=== PATIENT | female | born 1940 | race Caucasian/White ===

== ENCOUNTER 2016-12-03 22:50 | Inpatient (IN) | payer MEDICARE, OTHER ==
[~2016-12-03] VITALS: Ht 157.5 cm; Wt 77.5 kg
[~2016-12-03 22:50] MED LIST: ASPI-973 PO; CARV25TA2 PO; CLOP75TA3 PO; GLPZ5T PO; HYDR-4003 PO; LETR2.5T4 PO; LEVO88TA28 PO; LISI10TA PO; NITR0.4T SL; PROM25TA14 PO; ROPI1TAB3 PO; ROSU40TA20 PO
[2016-12-03 23:07] VITALS: BP 141/104; PULSE 145; RESP 20; RESP 29; O2SAT 94; O2SAT 98
--- NOTE | 2016-12-03 23:09 | ED.REPORT ---
HPI-Chest Pain 40 and Over Date of Service Dec 03, 2016 ED Provider: Danica Whittaker MD The pt is a 76 y/o female w/ a hx of 2 myocardial infarctions, a triple bypass, HTN, and hyperlipidemia presenting to the ED via EMS due to chest pain onset 2129. She describes the pain as substernal, radiating to the left arm, heavy, and a 5-6/10 pain. She took two aspirins and 3 nitroglycerin tablets w/o any relief. She also has been experiencing nausea for the last week. She took her daily aspirin at roughly 0900 this morning. EMS reports her HR being 150 when they arrived, and eventually decreasing to 110 , and a systolic high of 103 and a low of 75. The pt reports her systolic BP being 213 four days ago. The pt was prescribed two new blood pressure medications earlier this week but is unsure of the names. She was also hospitalized 2 years ago for a STEMI. Nursing Notes Stated Complaint: CHEST PAIN Chief Complaint: Chest Pain Nursing Notes Reviewed: Yes Allergies: Coded Allergies: codeine (Verified Allergy, Intermediate, 12/28/11) Scheduled Aspirin (Aspirin) 81 Mg Tablet 81 MG PO DAILY Carvedilol (Carvedilol) 25 Mg Tablet 12.5 MG PO BID Clopidogrel Bisulfate (Plavix) 75 Mg Tablet 75 MG PO DAILY Glipizide (Glipizide) 5 Mg Tablet 2.5 MG PO MORNING HOLD Letrozole (Letrozole) 2.5 Mg Tablet 2.5 MG PO DAILY Levothyroxine (Levoxyl) 88 Mcg Tablet 88 MCG PO DAILY Lisinopril (Lisinopril) 10 Mg Tablet 10 MG PO DAILY Ropinirole (Ropinirole) 1 Mg Tablet 1.5 TAB PO HS Rosuvastatin Calcium (Rosuvastatin Calcium) 40 Mg Tablet 40 MG PO HS Scheduled PRN Hydrocodone-Acetaminophen 5-325 mg (Hydrocodone-Acetaminophen 5-325 mg) 1 Each Tablet 1 TABLET PO Q6H PRN PRN For Pain Nitroglycerin SL (Nitrostat) 0.4 Mg Tab.subl 0.4 MG SL DIRECTED PRN PRN chest pain Promethazine (Promethazine) 25 Mg Tablet 25 MG PO q4-6h PRN PRN For Nausea/ Vomiting General Time Seen by MD: 23:08 Chief Complaint Chest pain Hx Obtained From: Patient, EMS Arrived By: Ambulance Sudden in Onset?: Yes Onset Occurred: 1 - 4 hours ago Symptom Duration: Since onset Recent Healthcare: No recent hospitalization, Recent doctor visit Similar Sx Previous: Yes Past Medical History Past Medical History 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 Physical Exam Initial Vital Signs Vital Signs (First) Date Time Temp Pulse Resp B/P Pulse Ox O2 Delivery O2 Flow Rate FiO2 12/03/16 23:07 37.2 145 29 141/104 94 12/03/16 23:48 Room Air 12/04/16 00:32 2 Initial VS: Reviewed, Vital signs normal Head / Eyes: Atraumatic, Normocephalic, PERRL ENT: Mucous membranes moist, Conjunctiva normal, No scleral icterus Extremities: Vascular intact, Neuro intact, No swelling, No tenderness Skin: Warm, Dry, No cyanosis Neurologic: Alert, Oriented, Nonfocal Psychiatric: Mood/affect normal, Behavior normal, Normal thought content General/Constitutional: Awake, Alert, No acute distress Respiratory / Chest: Atraumatic, Breath sounds NL, Breath sounds = bilat Cardiovascular: Heart sounds NL, Peripheral circulation NL Rapid regular rhythm at 145 Abdomen: Atraumatic, Soft, Non-tender Neck: Atraumatic, Supple, Full range of motion, No JVD Interpretation & Diagnostics Lab Results Interpretation Result Diagram: 12/03/16 2316 12/03/16 2316 Test 12/03/16 23:16 White Blood Count 11.1th/mm3 (3.8-10.1) Red Blood Count 5.21mil/mm3 (3.90-5.20) Hemoglobin 16.1g/dL (12.0-15.6) Hematocrit 50.2% (35.0-46.0) Mean Corpuscular Volume 96.4fL (81-100) Mean Corpuscular Hemoglobin 30.9pg (27.0-35.0) Mean Corpuscular Hemoglobin Concent 32.1% (32.0-37.0) Red Cell Distribution Width 15.2% (12.3-15.4) Platelet Count 170bil/L (150-400) Neutrophils (%) (Auto) 59.6% (40-74) Lymphocytes (%) (Auto) 26.1% (14-46) Monocytes (%) (Auto) 11.7% (4-12) Eosinophils (%) (Auto) 1.8% (0-5) Basophils (%) (Auto) 0.5% (0-3) Sodium Level 142mEq/L (134-144) Potassium Level 4.6mEq/L (3.5-5.2) Chloride Level 107mEq/L (97-108) Carbon Dioxide Level 23mmol/L (18-29) Blood Urea Nitrogen 32mg/dL (8-27) Creatinine 1.35mg/dL (0.57-1.00) Estimat Glomerular Filtration Rate 55mL/min (>59) Glucose Level 106mg/dL (60-99) Calcium Level 9.2mg/dL (8.5-10.1) Magnesium Level 2.4mg/dL (1.6-2.6) Total Bilirubin 0.4mg/dL (0.0-1.2) Aspartate Amino Transf (AST/SGOT) 31U/L (0-50) Alanine Aminotransferase (ALT/SGPT) 17U/L (0-32) Alkaline Phosphatase 134U/L (25-165) Troponin T 0.010ug/L (0.0-0.011) Total Protein 6.9g/dL (6.4-8.4) Albumin 3.6g/dL (3.4-5.0) Lab Results Interpretation: Mild elevation in white blood count, mild renal insufficiency ECG Interpretation ECG Interpretation: Rate 142 Sinus tachycardia Multiple ventricular premature complexes RBBB LVH w/ IVCD and secondary repol abnormal Inferior infarct, acute (RCA) Lateral leads are also involved Prolonged QT interval Probable RB involvement, suggest recording right precordial leads No acute ND Time: 23:11 Interpreted by: ED physician Normal ECG Interpretation: Normal rate ECG Interpretation: Rate 76 NSR RBBB Inferior infarct, age indeterminate Time: 00:03 Interpreted by: ED physician X-Ray Chest Interpretation Chest Xray Interpretation: Impression: X-ray shows a L mastectomy but otherwise is normal View: Portable, 1 view Interpretation / Wet Read by: Wet read ED physician Re-Eval/Medical Decision Med Decision/Clinical Course 76-year-old female who presents with chest pain and rapid heart rate. She is in a wide complex tachycardia with repolarization abnormality, cannot rule out sustained perfusing ventricular tachycardia. She was given metoprolol IV and converted to a normal sinus rhythm. Her chest pain resolved. Troponin is not elevated. Her case was discussed with Dr. Hall who recommended metoprolol tartrate 50 mg by mouth every 6 hours and admission. She was admitted to the hospitalist service, [facility]. Source of Hx: Old records Time of Eval: 00:17 Re-Evaluation/Progress Note: Pt rechecked and is not experiencing any pain currently. Informed pt of need for admission. Pt understands and agrees with plan for admission. All questions addressed. Consultation #1: Referral / Consult Name: El Hall MD Consulted With: Cardiology Note: Discussed pt's case. Consultation #2: Referral / Consult Name: Maya Lynn DO Consulted With: Hospitalist Call Returned at: 01:06 Electronics Research Engineer: Will see patient, Agrees with eval, Agrees with plan, Accepts admit Counseled Regarding: Diagnosis, Lab results, Need for admission Discharge & Departure Primary Impression: Chest pain Chest pain type: unspecified Qualified Code: R07.9 - Chest pain, unspecified Additional Impression: Ventricular tachycardia Disposition: ADMITTED TO HOSPITAL Discharge Condition All VS Reviewed: Yes Condition: Stable Referrals: Janina Silva PAC (PCP) Mitali Soto MD Crit Care Except Billable Proc Time Spent: 30-74 minutes Services Performed: Patient management by me, Time spent at bedside, Reviewing test results, Reviewing imaging, Discussing patient care, Documentation in record, Time with fam/surrogate Scribe Attestation Portions of this note were transcribed by Harish Velez. I, Dr. Mishra personally performed the history, physical exam and medical decision-making; I reviewed and confirmed the accuracy of the information in the transcribed note. copies to: Janina Silva; Mitali Soto MD, Howard L MD Dec 03, 2016 23:09 Harish Velez Dec 03, 2016 23:25
[2016-12-03 23:20] LABS: BASOPHILS % (AUTO) 0.5 % (0-3); EOSINOPHILS % (AUTO) 1.8 % (0-5); MONOCYTES % (AUTO) 11.7 % (4-12); Mean Corpuscular Hemoglobin 30.9 pg (27.0-35.0); Mean Corpuscular Volume 96.4 fL (81-100); NEUTROPHILS % (AUTO) 59.6 % (40-74); Platelet Count 170 bil/L (150-400)
[2016-12-03] MEDS ORDERED: Nitroglycerin 2% 1 Gm Ointment TOPICAL ONE (23:20)
[2016-12-03] MEDS: MeTOProlol 1 mg/mL 5 mL Inj IVPUSH PRN ×3 (23:25→23:44)
[2016-12-03 23:36] VITALS: BP 135/86; PULSE 146
[2016-12-03 23:47] LABS: TROPONIN T 0.01 ug/L (0.0-0.011)
[2016-12-03 23:48] VITALS: BP 125/80; RESP 37; O2SAT 93
[2016-12-03 23:52] VITALS: BP 126/85; PULSE 146
[2016-12-03 23:58] LABS: Magnesium 2.4 mg/dL (1.6-2.6)
[2016-12-04] VITALS (9 sets, daily range): BP systolic 123–158; BP diastolic 63–88; PULSE 53–76; RESP 16–22; O2SAT 92–95
[2016-12-04] MEDS ORDERED: Alum-Mag Hydrox-Simeth 30 mL Suspension PO PRN (01:15)
[2016-12-04] MEDS ORDERED: Senna-Docusate 8.6-50 mg Tablet PO PRN (01:15)
[2016-12-04] MEDS ORDERED: Polyethylene Glycol (PEG) 17 Gm Powder PO PRN (01:15)
[2016-12-04] MEDS ORDERED: Ondansetron 2 mg/mL 2 mL Inj IVPUSH PRN (01:15)
[2016-12-04 02:13] LABS: APPEARANCE,URINE CLEAR (CLEAR,HAZY); COLOR,URINE STRAW (YELLOW); OCCULT BLOOD,URINE TRACE (NEGATIVE); PH,URINE 5.5 (5.0-8.0); UROBILINOGEN,URINE NORMAL (NORMAL)
--- NOTE | 2016-12-04 02:42 | PCM.HPMED ---
Subjective Date of Service Dec 04, 2016 Primary Provider: Admitting Physician: Maya Lynn DO Primary Care Physician: Janina Silva Attending Physician: Maya Lynn DO Admit Status: From the Emergency Department, Full Admit, [facility] Telemetry Chief Complaint: Chest pain. . History of Present Illness: Gege Shelley is a 76-year-old female with a past medical history significant for myocardial infarction 2, CABG 3 vessels, hypertension and hyperlipidemia who presented to [facility] emergency department via EMS due to chest pain onset 2129. The patient describes the chest pain as substernal in location. The pain radiated to her right arm. The quality of the pain was "heavy." She rated the pain a +6 out of 10 in severity. She has had accompanying nausea 1 week. She took two aspirins and 3 sublingual nitroglycerin tablets without any relief. She took her daily aspirin at roughly 0900 this morning. EMS reports her HR being 150 when they arrived, and eventually decreasing to 110, and a SBP with a high of 103 mmHg and a low of 75mmHg. The patient reports her SBP being 213 mmHg four days ago. Her chest pain resolved in the ED after she was chemically cardioverted with IV metoprolol tartrate. She was also hospitalized two years ago for a STEMI. She denies vision changes, cough, sore throat, shortness of breath, palpitations, diaphoresis, vomiting, dysuria, or diarrhea. She endorses chronic constipation. Vital signs in the ER: Temperature 37.2. Pulse 145. Respiratory rate 29. Blood pressure 141/104. Pulse ox I4 percent on room air.She was given nitroglycerin paste 1 inch topically and metoprolol tartrate IV 5 mg 3. PCP is Dr. Janina Goldberg PA-C. Asphalt Patcher is Dr. Soto. . Review of Systems: A comprehensive review of systems was conducted with the patient and found to be negative except as above in the History of Present Illness. . Allergies Coded Allergies: codeine (Verified Adverse Reaction, Intermediate, Rash and itching, ) Home Medications Aspirin 81 mg daily. Carvedilol 12.5 mg twice a day. Citalopram 10 mg daily. Clopidogrel 75 mg daily. Glipizide 2.5 mg daily. Letrozole 2.5 mg daily. Levothyroxine 88 g daily. Lisinopril 10 mg daily. Nitroglycerin 0.4 mg sublingual every 5 minutes as needed for chest pain. Promethazine 25 mg daily every 4-6 hours as needed for nausea. Ropinirole 1.5 mg daily at bedtime. Rosuvastatin 40 mg daily at bedtime. . PMH 1. Coronary artery disease status post CABG in 2006. 2. Heart failure with reduced ejection fraction 40-45%. 3. Hypertension. 4. Hyperlipidemia. 5. Prediabetes. 6. Myocardial infarction 2. 7. Restless leg syndrome. 8. Hypothyroidism. 9. Left breast cancer status post left mastectomy, chemotherapy, and radiation. 10. Chronic kidney disease stage IV. 11. Depression with recent bereavement. . Surgical History 1. CABG x 3 grafts. 2. Cholecystectomy 3. Bilateral cataract extraction. 4. Tonsillectomy. . Family History Mother who of an KS at 50 years old. Father who of an KS at 71 years old. . Social History Hx Alcohol Use: No (HX OF ABUSE) Hx Substance Use: No Hx Tobacco Use: Yes Smoking Status: Former Smoker (1/2 ppd x 25 years) Additional Information Patient is recently in July 2016. She was for 55 years. She has 2 daughters, one of which has diabetes mellitus type II with significant retinopathy. She lives at home with her grandson. . Exam Vital Signs Vital Sign - Last Date Time Temp Pulse Resp B/P Pulse Ox O2 Delivery O2 Flow Rate FiO2 12/04/16 00:32 68 18 123/63 94 Nasal Cannula 2 12/03/16 23:07 37.2 Intake and Output 12/03/16 12/03/16 12/04/16 Cumulative From/Thru 15:00 23:00 07:00 12/03/16 23:07 - 12/03/16 23:16 Intake Total 0 ml 0 ml Balance 0 ml 0 ml Intake Oral 0 ml 0 ml Exam General: Elderly female lying in bed and in no acute distress, well-developed, well-nourished, appropriately interactive. HEENT: Normocephalic, atraumatic. External ears without defect. Pupils equal, round, and reactive to light. Anicteric sclerae, moist conjunctivae, and no lid lag. Oropharynx free of erythema and cobble stoning with moist mucosa. Neck: Supple with full range of motion. No jugular venous distension. No bruits. No lymphadenopathy or thyromegaly. Cardiovascular: Regular rate and rhythm without murmurs, rubs, or gallops appreciated. Surgical scar on chest. Nitroglycerin paste in place. Pulmonary: Clear to auscultation bilaterally without crackles, wheezes, or rhonchi. Normal respiratory effort with no use of accessory muscles. Abdomen: Soft, obese, nontender, nondistended, hypoactive bowel sounds. No hepatosplenomegaly or masses appreciated. Extremities: No clubbing, cyanosis, or edema. Skin: Normal temperature, turgor, and texture; no rash, ulcers, or subcutaneous nodules appreciated. Neurological: Cranial nerves grossly intact. Normal muscle strength, tone, and bulk. Reflexes, coordination, and sensory function within normal limits. No known gait impairment. Psychiatric: Normal mood and affect. Alert and oriented to person, place, and time. . Lab and Diagnostics Labs Item Value Date Time Calcium Level 9.2 mg/dL 12/03/162315 Magnesium Level 2.4 mg/dL 12/03/162315 Total Bilirubin 0.4 mg/dL 12/03/162315 Aspartate Amino Transf (AST/SGOT) 31 U/L 12/03/162315 Alanine Aminotransferase (ALT/SGPT) 17 U/L 12/03/162315 Alkaline Phosphatase 134 U/L 12/03/162315 Troponin T 0.010 ug/L 12/03/162315 Total Protein 6.9 g/dL 12/03/162315 Albumin 3.6 g/dL 12/03/162315 Result Diagram: 12/03/16231512/03/162315 X-Rays, CTs and MRIs Portable chest x-ray wet read by ED physician: Left mastectomy without any acute cardio pulmonary process. . Cardiac Echo Impressions Previous Echocardiogram Interpretation Summary: The left ventricle is normal in size. Left ventricular wall thickness is mildly increased. The ejection fraction is estimated to be 40-45%. There is apical lateral wall moderate hypokinesis. There is apical inferior wall akinesis. There is posterolateral wall severe hypokinesis. The IVC is of normal diameter and collapses greater than 50% with a sniff. This suggests a low right atrial pressure of 3 mm Hg. No other echocardiographic abnormalities seen. Since the prior exam from 04/23/2013 no significant changes noted. Reading Physician:05:04 PM . Assessment & Plan Gege Shelley is a 76-year-old female with a past medical history significant for myocardial infarction 2, CABG 3 vessels, hypertension and hyperlipidemia who presented to [facility] emergency department via EMS due to chest pain who was found to be in ventricular tachycardia status post chemical cardioversion with IV metoprolol tartrate. 1. Acute ventricular tachycardia, present on admission. Active. - Patient presented with substernal chest pain and wide complex tachycardia later determined to be ventricular tachycardia per cardiology, Dr. Hall. - Cardiac risk factors include: previous KS 2, CABG 3 vessels, hypertension, hyperlipidemia, prediabetes, age, obesity, former smoker. - Status post conversion with metoprolol tartrate IV. - Discontinued carvedilol and started metoprolol tartrate 50 mg every 6 hours at the recommendation of cardiology, Dr. Hall. - Start amiodarone if ventricular tachycardia recurs. - [address] Ordered nitroglycerin and morphine as needed for chest pain. - Ordered EKG PRN for chest pain. - Continue to monitor closely on telemetry. - Ordered echocardiogram. - Initial troponin negative. Ordered serial troponins x 3. - Ordered TSH, pending. - Electorlytes within normal limits. Keep K+ > 4.0. and Mg+ > 2.0. - Ordered UA with culture if indicated. - Consulted cardiology, Dr. Hall, who will plan to see the patient tomorrow. Chronic problems: 2. Heart failure with reduced ejection fraction 40-45%, present on admission. Presumed stable. - Discontinued carvedilol and started metoprolol tartrate 50 mg every 6 hours at the recommendation of cardiology, Dr. Hall. - Continue lisinopril 10 mg daily. 3. CAD, present on admission. Presumed stable. - Continue aspirin 81 mg daily and clopidogrel 75 mg daily. 4. Hypertension, present on admission. Stable. - Continue lisinopril 10 mg daily. 5. Hyperlipidemia, present on admission. Presumed stable. - Continue rosuvastatin 40 mg daily at bedtime. 6. Chronic kidney disease stage IV, present on admission. Stable. - Baseline creatinine 1.3-1.4. Initial creatinine 1.35. - Avoid nephrotoxic agents. 7. Prediabetes, present on admission. Presumed stable. - Last hemoglobin A1c 6.3% in 11/2015. Repeat hemoglobin A1c pending. - Placed patient on a carbohydrate consistent/heart healthy diet. - Continue glipizide 2.5 mg daily. 8. History of breast cancer. - Continue Letrozole 2.5 mg daily. 9. Hypothyroidism, present on admission. Presumed stable. - Continue levothyroxine 88 g daily. - Ordered TSH, pending. 10. Restless leg syndrome, present on admission. Stable. - Continue ropinirole 1.5 mg daily at bedtime. 11. Depression with bereavement, present on admission. Stable. - Continue citalopram 10 mg daily. PRN antiemetics: Zofran and Maalox. PRN bowel regimen: Senna and MiraLAX. PRN analgesics: Nitroglycerin, morphine and Tylenol. Patient is admitted under inpatient status with expected length of stay greater than 2 midnights due to severity of presenting symptoms, risk of adverse event, and complexity of treatment plan. . VTE Prophylaxis: Sub-Q Heparin (Unfractionated) Resuscitation Status: CPR: Attempt Resuscitation Attending Statement The patient was seen and examined together with Dr. Fleming on 12/03/2016 and I agree with the history, exam and plan as outlined in the note above. copies to: Janina Silva PAC; Mitali Soto MD, [place] M DO Dec 04, 2016 01:18 Maya Lynn DO Dec 04, 2016 05:13
[2016-12-04] MEDS ORDERED: Promethazine 25 mg/mL Inj IM PRN (02:50)
[2016-12-04 03:43] LABS: BASOPHILS % (AUTO) 0.3 % (0-3); EOSINOPHILS % (AUTO) 1.8 % (0-5); MONOCYTES % (AUTO) 10.8 % (4-12); Mean Corpuscular Hemoglobin 31.5 pg (27.0-35.0); Mean Corpuscular Volume 96.7 fL (81-100); NEUTROPHILS % (AUTO) 62.1 % (40-74); Platelet Count 137 bil/L (150-400)
[2016-12-04 04:08] LABS: TROPONIN T 0.011 ug/L (0.0-0.011)
--- NOTE | 2016-12-04 04:19 | NUR ---
Admit Pt arrived to [facility] from ED. Pt able to transfer self to bed and stand on scale. Med rec not complete as pt unable to remember dosages, requested family bring in medication to help with med rec. Pt A&Ox3, no current c/o CP, SOB or pain and is SBA in room to BR with strong gait noted. VSS and Tele SR 70's with IVCD.
[2016-12-04 04:22] LABS: Creatine Kinase 92 U/L (21-215); Magnesium 2.5 mg/dL (1.6-2.6)
[2016-12-04] MEDS: Heparin 5,000 Unit/mL Inj SUBQ SCH ×3 (09:07→23:57)
[2016-12-04] MEDS: Sodium Chloride LOK Flush 10 mL Syringe IVFLUSH SCH ×3 (09:07→23:57)
--- NOTE | 2016-12-04 09:10 | DRSVH ---
PROCEDURE: X-RAY CHEST ONE VIEW, PORTABLE ([id number]) INDICATIONS: chest pain TECHNIQUE: One view of the chest was acquired. COMPARISON: [facility], CT, CT ABDOMEN PELVIS WO CONTRAST, 01/30/2016, 11:23 AM. FINDINGS: Surgical changes and devices: Prior sternotomy wires, presumed prior CABG.. Lungs and pleura: No pleural effusions or pneumothorax. Lungs are mildly abnormal with a mild appea ring interstitial prominence, potentially slight pulmonary edema. Mediastinum: Mediastinal contours appear normal. Heart size is normal. Bones and chest wall: No suspicious bony lesions. Overlying soft tissues appear unremarkable. IMPRESSION: Suspect mild pulmonary edema, prior CABG. No significant cardiomegaly at this time. Dictated by: Eh Rivera M.D. on 12/04/2016 at 9:08 Approved by: Eh Rivera M.D. on 12/04/2016 at 9:09
[2016-12-04 12:09] LABS: Creatine Kinase 87 U/L (21-215)
--- NOTE | 2016-12-04 13:41 | CONS ---
[address] [address] CONSULTATION REPORT PATIENT: RANDY BENNETT : 1940 MR#: [id number] ADMIT: 12/04/2016 JOB ID: [id number] DATE OF SERVICE: 12/04/2016 IDENTIFICATION: Dr. Ashley Fleming has asked that I consult on this complicated 76-year-old female admitted with tachycardia. HISTORY OF PRESENT ILLNESS: The patient has a longstanding history of ischemic heart disease with multiple previous myocardial infarctions and stenting in [place] in the , but subsequent failed followup and was noncompliant with her medications until she presented in 2005 with a non-ST elevation DE. Cardiac catheterization revealed severe three-vessel coronary artery disease with an ejection fraction of 20% to 25% with bilateral high-grade superficial femoral artery stenoses. She was subsequently referred for bypass grafting at [place] and received an MCGRATH to the LAD and a vein graft to the obtuse marginal and a vein graft to the PDA, with her course complicated by a postoperative stroke. Intervention to the left superficial artery was complicated by a retroperitoneal bleed with shock and transient acute renal failure and has been felt not to be an interventional candidate subsequently. She has also had documented renal artery stenosis and has undergone angioplasty to her renal arteries. She has subsequently failed followup until she was seen by Dr. Soto in 2010 because of chest tightness radiating up to the jaw. An echocardiogram at that time showed an ejection fraction of 30% to 35% but a myocardial perfusion study showed an ejection fraction of 53% with a large inferoposterior scar but no ischemia. Her chest pain resolved spontaneously and was felt to be secondary to psychosocial stress. She was subsequently diagnosed with breast cancer in 2011 and underwent mastectomy although with subsequent poor wound healing. An echocardiogram in 2013 showed an ejection fraction of 40% to 45% and she has been followed by Dr. Soto with her last visit in May 2015 when she was felt to be relatively stable but subsequent failed followup. She was admitted in November 2015 with chest discomfort several weeks after cholecystectomy and underwent urgent cardiac catheterization which revealed mild disease in the left main with complete occlusion of the obtuse marginal, LAD, and RCA, but widely patent vein graft to the left circumflex and PDA, and a patent MCGRATH to the LAD, and thus there is no culprit lesion. An echocardiogram at that time suggested an ejection fraction of 40% to 45% with inferolateral hypokinesis and akinesis but no significant valvular abnormality and a relatively low CVP. She again subsequently failed followup with Dr. Soto, although is now scheduled to see her on December 14, 2016. She saw Janina Silva on November 29, 2016 and had a recorded blood pressure 213/116 after running out of her carvedilol and lisinopril for around five days and both were restarted. She reports having an episode of chest discomfort and headache with nausea around one week ago that just lasted a few minutes and spontaneously resolved but returned last night. She had no sense of any palpitations but when medics arrived they apparently found her heart rate around 150. She was transported to the emergency department and had stable blood pressures of 141/104, with an ECG that showed a probable wide complex tachycardia with a right bundle branch configuration that was intermittent. She was given a dose of IV metoprolol with conversion to sinus rhythm, again with a right bundle branch block, although with the axis shifted more posteriorly and a more narrow QRS complex. With this she had resolution of her symptoms without any recurrence. She is a fairly challenging historian currently as she is currently quite somnolent, although easily arousable. Does not give his specifics but denies any sense of any palpitations and has never had any lightheadedness. She denies any other episodes of similar type symptoms except for last Tuesday. She otherwise has been feeling well, without any anginal discomfort or dyspnea. She reports blood pressures at home have generally been in the 110-120 range. She has been ambulating, walking in stores without any change in her exercise capacity. CARDIAC RISK FACTORS: She has known hypertension, hyperlipidemia, and diabetes. She has a long history of tobacco use but stopped in 2005. FAMILY HISTORY: Notable for father dying of an DE in his 70s and mother in her 50s from heart issues. Brother of kidney failure. PAST MEDICAL HISTORY: Notable for a history of TIA status post bilateral carotid endarterectomy. She has a history of COPD but is not on any bronchodilators. History of renal insufficiency status post angioplasty for renal artery stenosis. She has a history of restless leg syndrome. She has been told that she is a prominent snorer, although has never had a sleep evaluation. She has a history of cholecystectomy and mastectomy for breast cancer. HOME MEDICATIONS: Aspirin 81 mg daily, carvedilol 12.5 mg b.i.d., clopidogrel 75 mg daily, glipizide 2.5 mg q.a.m., letrozole 2.5 mg daily, levothyroxine 0.088 mg daily, lisinopril 10 mg daily, ropinirole 1.5 mg q.h.s., rosuvastatin 40 mg daily. FAMILY HISTORY: As above. SOCIAL HISTORY: The patient was in July 2016. She lives in [place] with her grandson. She denies any alcohol use. REVIEW OF SYSTEMS: Limited because of the patient's somnolence and inability to answer questions, but briefly she denies any fevers or chills or recent weight change. She has had no dyspnea or hemoptysis. Denies any GI blood loss or hematuria. Denies any recent neurologic symptoms. PHYSICAL EXAMINATION: Moderately obese elderly female who appears older than her stated age, who is quite somnolent, frequently falling asleep during the interview but promptly awakening with stimulation. HR 63, BP 144/75, O2 saturation 92% on room air. She has had a flat fluid balance. Her weight is 77.5 kg. Skin: Warm and dry. HEENT: EOMI. Without arcus. She has fairly poor dentition. Lungs: Clear bilaterally to auscultation and percussion, without any rales or wheeze. CV: Nonpalpable PMI with a regular rhythm, without any appreciable murmurs or gallops. JVP is around 4 cm. Carotid pulses are nonpalpable. Dorsalis pedis pulse is 1+ on the right, nonpalpable on the left, and posterior tibial pulses are nonpalpable. Chest: She is status post left mastectomy. Abdomen: Moderately obese but nondistended and nontender, without any palpable masses or organomegaly. Normal bowel tones are present, without bruits. Extremities: Warm, without any clubbing, cyanosis, or edema. Neuro: Moves all four extremities. Psych: Somnolent but awakable and appropriate when awake. LABORATORY: Potassium is 4.3 with a BUN of 33 and a creatinine of 1.31. Glucose was 110. Magnesium 2.5. Cardiac enzymes were completely normal. TSH is 0.979. White count is 9.8 with a hematocrit of 44.5%. Chest x-ray: Status post CABG with fairly clear lungs, although with some slight interstitial prominence. ECG: Her presenting ECG shows a fairly regular wide complex tachycardia at around 150 BPM with a right bundle branch block. There is a suggestion of AV dissociation making it concerning for ventricular tachycardia, although there is interspersed probable sinus beats, also with a right bundle branch configuration. Subsequent ECG after conversion shows sinus rhythm at 76 BPM with a right bundle branch block and probable left atrial enlargement. There are some diffuse T-wave abnormalities that are unchanged from her previous ECG, except for in the inferior leads which are more prominent. IMPRESSION: 1. Wide complex tachycardia. This could be SVT with an aberrant conduction although I am somewhat concerned this could represent ventricular tachycardia given the suggestion of possible AV dissociation. Given this, I would recommend institution of oral amiodarone, although with close observation of her underlying lung status. With this she may require some reduction in her beta blockade. I would continue to observe her heart rate and rhythm over the next 48 hours to ensure no recurrent ventricular tachycardia and then she can be discharged with followup with Dr. Soto as previously scheduled. Her echocardiogram is currently pending but as long as this shows no concerning new abnormalities I do not believe that any further ischemic evaluation is necessary at this time given that her cardiac enzymes are completely normal despite her tachycardia. 2. Coronary artery disease status post coronary artery bypass graft with ischemic cardiomyopathy. She appears to be fairly well compensated on physical exam, without any evidence of congestive heart failure. I would continue with her other medications as is for now. 3. Diffuse peripheral arterial disease. She is relatively asymptomatic. 4. Hypertension. Recent exacerbation of her hypertension due to medical noncompliance but this appears to have improved with reinstitution of her medications. 5. Chronic renal insufficiency. Appears to be relatively stable. 6. History of tobacco use with chronic obstructive pulmonary disease. Again with the institution of amiodarone this will need to be followed closely with outpatient pulmonary function testing. RECOMMENDATIONS: 1. Continue with her current dose of metoprolol but start amiodarone at 400 mg b.i.d. for one week and then can be reduced down to 400 mg daily. She will require outpatient close monitoring of her lungs. If there is any intolerance to her amiodarone, consideration could be given to an implantable automatic defibrillator. 2. Continue with her other medications with close observation of her thyroid, electrolytes, and renal function. 3. Will check her echocardiogram and as long as this shows no significant change I suspect that she can be discharged after 48 hours of observation to ensure the absence of any recurrent ventricular tachycardia with followup with Dr. Soto. TIME: I spent 1 hour and 22 minutes reviewing the patient's medical record, examining the patient, and documenting such.
--- NOTE | 2016-12-04 13:57 | DRSVH ---
[facility] [address] [place] [address] Echocardiogram Report Name: RANDY BENNETT MStudy Date: 12/04/2016 Height: 62 in Hospital Exam Location: [facility] Weight: 171 lb Gender: Female BSA: 1.8 m2 : 1940 Age: 76 yrs BP: 158/88 mmHg Reason For Study: Chest pain Ordering Physician: [facility]PITAL[facility] Performed By: Trung Tucker Referring Physician: NINOSKA ARELLANO Interpretation Summary Left ventricular systolic function is moderately reduced with the ejection fraction estimated to be 35-40% with akinesis of the majority of the inferior, posterior and lateral bennett, extending to and involving the majority of the apex but this is unchanged compared to the previous study. Left ventricular size is at the upper limits of normal. Assessment of diastolic parameters suggests a pseudonormalization pattern, consistent with elevated filling pressures, likely higher compared to the previous study. The right ventricle is normal size and right ventricular systolic function is moderately reduced but is likely unchanged compared to the previous study. The right ventricular systolic pressure is estimated at 36 mmHg assuming a right atrial pressure of 3 mm Hg, and is likely unchanged compared to the previous study. The left atrium is mildly dilated. There is mild mitral regurgitation that is unchanged compared to the previous study. There is no other significant valvular heart disease. The ascending aorta is mildly enlarged. Procedure: A two-dimensional transthoracic echocardiogram with color flow and Doppler was performed. The study quality was technically good. Comparison is made with the echocardiogram of . The patient was in sinus bradycardia with heart rates between 49-59 bpm during the exam. Left Ventricle: Left ventricular size is at the upper limits of normal. Left ventricular wall thickness is borderline increased. Left ventricular systolic function is moderately reduced. The ejection fraction is estimated to be 35-40%. There is akinesis of the majority of the inferior, posterior and lateral bennett, extending to and involving the majority of the apex. This is unchanged compared to the previous study. Assessment of diastolic parameters suggests a pseudonormalization pattern, consistent with elevated filling pressures. This is likely higher compared to the previous study. Right Ventricle: The right ventricle is normal size. Right ventricular systolic function is moderately reduced. This is unchanged compared to the previous study. Atria: The left atrium is mildly dilated. Right atrial size is normal. The interatrial septum is intact with no evidence for an atrial septal defect. Mitral Valve: The mitral valve leaflets appear mildly thickened, but open well. The mitral valve leaflets are mildly calcified. There is mild mitral regurgitation. This is unchanged compared to the previous study. Aortic Valve: The aortic valve is trileaflet. The aortic valve is slightly calcified. The aortic valve opens well. There is no hemodynamically significant valvular aortic stenosis. No aortic regurgitation is present. Tricuspid Valve: The tricuspid valve is normal. There is trace tricuspid regurgitation. The right ventricular systolic pressure is estimated at 36 mmHg assuming a right atrial pressure of 3 mm Hg. This is unchanged compared to the previous study. Pulmonic Valve: The pulmonic valve leaflets are thin and pliable; valve motion is normal. There is a trace or physiologic amount of pulmonic regurgitation. There is no other significant valvular heart disease. Great Vessels: The aortic root is normal size. The ascending aorta is mildly enlarged. The pulmonary artery is normal size. The IVC is of normal diameter and collapses greater than 50% with a sniff. This suggests a low right atrial pressure of 3 mm Hg. Pericardium/ Pleura There is no pericardial effusion. There is no pleural effusion. MMode/2D Measurements & Calculations LVIDd: 5.5 cm RA long axis: 4.8 cm LVOT diam LVIDs: 4.5 cm LA A2 area: 19.8 cm FS: 17.9 % LA A4 area: 20.0 cm RA area: 16.0 cm AoV Opening EPSS: 1.4 cm LA length (vol): 5.3 cm RA vol: 45.3 ml IVSd: 1.2 cm LA vol: 63.7 ml RA : 25.3 ml/m2 Ao root diam LVPWd: 0.50 cm LA vol index asc Aorta Diam: 3.4 cm IVC diam: 1.5 cm EDV(MOD-sp2) LV srinivasan. diameter/BSA LV sys. diameter/BSA RVD1 (basal) (cm/m^2): 3.1 (cm/m^2): 2.5 : 3.3 cm ESV(MOD-sp2) EF(MOD-sp2) TAPSE: 1.1 cm Doppler Measurements & Calculations Ao V2 max: 141.8 cm/secMV E max trevon MV E/A: 1.2 TR max trevon Ao max P.0 mmHg : 91.0 cm/sec Med Peak E' Trevon : 285.6 cm/sec Ao mean P.0 mmHg MV A max trevon TR max PG LVOT Max Trevon : 76.4 cm/sec E/E' med: 26.2 : 32.6 mmHg : 81.6 cm/sec Lat Peak E' Trevon PA V2 max : 65.7 cm/sec PRADEEP(I,D): 1.7 cm E/E' lat: 22.8 PA mean PG sev ratio: 0.54 E/e' average : 0.74 mmHg MV dec time: 0.20 sec Ao V2 mean LV V1 max PG PA V2 mean : 95.1 cm/sec : 40.4 cm/sec Ao V2 VTI LV V1 VTI: 17.7 cmPA pr(Accel) : 43.2 mmHg PRADEEP(V,D): 1.7 cm2 PRADEEP indexed to BSA (cm^2/m^2): 0.92 Reading Physician:01:56 PM
[2016-12-04] MEDS ORDERED: RANI150C4 PO (15:01)
[2016-12-04] MEDS ORDERED: OMEP20CA11 PO (15:01)
[2016-12-04] MEDS ORDERED: HYDR-3091 PO (15:01)
[2016-12-04] MEDS ORDERED: OXYC1TAB24 PO (15:01)
[2016-12-04] MEDS ORDERED: TRAM50TA2 PO (15:01)
[2016-12-04] MEDS ORDERED: NITR100C PO (15:01)
[2016-12-04] MEDS ORDERED: DEXL30CA3 PO (15:01)
[2016-12-04] MEDS ORDERED: CITA10TA9 PO (15:01)
[2016-12-04] MEDS ORDERED: ONDA4TAB12 PO (15:01)
[2016-12-04] MEDS ORDERED: POLY17PO2 PO (15:01)
[2016-12-04] MEDS ORDERED: PANT40TA3 PO (15:01)
[2016-12-04] MEDS ORDERED: HYDR473S48 PO (15:01)
[2016-12-04] MEDS ORDERED: OXYC-474 PO (15:01)
[2016-12-04] MEDS ORDERED: PROC10TA PO (15:01)
[2016-12-04] MEDS ORDERED: MELA10TA2 PO (19:27)
--- NOTE | 2016-12-04 21:08 | PCM.PNMED ---
Subjective Date of Service Dec 04, 2016 Subjective Subjective: Patient states that she is feeling much better today and would like to go home. Events Overnight: No acute events overnight. ROS: Denies fever/chills, nausea/vomiting, headache, weakness, abdominal pain, chest pain, shortness of breath, increased swelling in hands or feet. Exam Vital Signs Vital Sign - Last Date Time Temp Pulse Resp B/P Pulse Ox O2 Delivery O2 Flow Rate FiO2 12/04/16 20:32 36.8 54 22 124/71 92 Room Air 12/04/16 01:47 2.00 Intake and Output 12/03/16 12/03/16 12/04/16 Cumulative From/Thru 15:00 23:00 07:00 12/03/16 23:07 - 12/04/16 06:40 Intake Total 100 ml 100 ml Output Total 200 ml 200 ml Balance -100 ml -100 ml Intake Oral 100 ml 100 ml Output Urine Total 200 ml 200 ml Exam General: No acute distress, well-developed, well-nourished Head: Normocephalic, atraumatic. External ears without defect. Eyes: Pupils equal, round, and reactive to light and accommodation. Anicteric sclerae, moist conjunctivae. Neck: Normal range of motion, no lymphadenopathy noted Cardiovascular: Regular rate and rhythm with no murmurs, rubs, or gallops appreciated Pulmonary: Clear to auscultation bilaterally with no crackles, wheezes, or rhonchi. Normal respiratory effort with no use of accessory muscles. Abdomen: Bowel tones present. Soft, obese nontender, nondistended. Extremities: No clubbing, cyanosis, edema Skin: Normal temperature, turgor, and texture; no rash, ulcers, or subcutaneous nodules appreciated. Neurological: Cranial nerves grossly intact. Reflexes, coordination, and sensory function within normal limits. Normal muscle strength, tone, and bulk. Psychiatric: Normal mood and affect. Alert and oriented to person, place, and time IVs and Medications Medications Reviewed: Medications were reviewed in detail Lab and Diagnostics Result Diagram: 12/04/16 0325 12/04/16 032 X-Rays, CTs and MRIs Portable chest x-ray wet read by ED physician: Left mastectomy without any acute cardio pulmonary process. . Cardiac Echo Impressions Previous Echocardiogram Interpretation Summary: The left ventricle is normal in size. Left ventricular wall thickness is mildly increased. The ejection fraction is estimated to be 40-45%. There is apical lateral wall moderate hypokinesis. There is apical inferior wall akinesis. There is posterolateral wall severe hypokinesis. The IVC is of normal diameter and collapses greater than 50% with a sniff. This suggests a low right atrial pressure of 3 mm Hg. No other echocardiographic abnormalities seen. Since the prior exam from 04/23/2013 no significant changes noted. Reading Physician:05:04 PM . Echocardiogram Interpretation Summary Left ventricular systolic function is moderately reduced with the ejection fraction estimated to be 35-40% with akinesis of the majority of the inferior, posterior and lateral bennett, extending to and involving the majority of the apex but this is unchanged compared to the previous study. Left ventricular size is at the upper limits of normal. Assessment of diastolic parameters suggests a pseudonormalization pattern, consistent with elevated filling pressures, likely higher compared to the previous study. The right ventricle is normal size and right ventricular systolic function is moderately reduced but is likely unchanged compared to the previous study. The right ventricular systolic pressure is estimated at 36 mmHg assuming a right atrial pressure of 3 mm Hg, and is likely unchanged compared to the previous study. The left atrium is mildly dilated. There is mild mitral regurgitation that is unchanged compared to the previous study. There is no other significant valvular heart disease. The ascending aorta is mildly enlarged. Reading Physician:01:56 PM Assessment & Plan Gege Shelley is a 76-year-old female with a past medical history significant for myocardial infarction 2, CABG 3 vessels, hypertension and hyperlipidemia who presented to [facility] emergency department via EMS due to chest pain who was found to be in ventricular tachycardia status post chemical cardioversion with IV metoprolol tartrate. Acute ventricular tachycardia, present on admission. Active. - Patient presented with substernal chest pain and wide complex tachycardia later determined to be ventricular tachycardia per cardiology, Dr. Hall. - Cardiac risk factors include: previous CT 2, CABG 3 vessels, hypertension, hyperlipidemia, prediabetes, age, obesity, former smoker. - Status post conversion with metoprolol tartrate IV. - Discontinued carvedilol and started metoprolol tartrate 50 mg every 6 hours at the recommendation of cardiology, Dr. Hall. - Per recommendations of cardiology amiodarone 400 mg BID - Continue to monitor closely on telemetry. - Echocardiogram shows ejection fraction 35-40% (decreased from previous) other results as above - Initial troponin negative. serial troponins x 3 negative. - TSH within normal limits - Electorlytes within normal limits - UA negative - Consulted cardiology Chronic problems: Heart failure with reduced ejection fraction, present on admission. Presumed stable. - Discontinued carvedilol and started metoprolol tartrate 50 mg every 6 hours at the recommendation of cardiology, Dr. Hall. - Continue lisinopril 10 mg daily. CAD, present on admission. Presumed stable. - Continue aspirin 81 mg daily and clopidogrel 75 mg daily. Hypertension, present on admission. Stable. - Continue lisinopril 10 mg daily. Hyperlipidemia, present on admission. Presumed stable. - Continue rosuvastatin 40 mg daily at bedtime. Chronic kidney disease stage IV, present on admission. Stable. - Baseline creatinine 1.3-1.4. Initial creatinine 1.35. - Avoid nephrotoxic agents. Prediabetes, present on admission. Presumed stable. - Last hemoglobin A1c 6.3% in 11/2015. Repeat hemoglobin A1c pending. - Placed patient on a carbohydrate consistent/heart healthy diet. - Continue glipizide 2.5 mg daily. History of breast cancer. - Continue Letrozole 2.5 mg daily. Hypothyroidism, present on admission. Presumed stable. - Continue levothyroxine 88 g daily. - Ordered TSH, pending. Restless leg syndrome, present on admission. Stable. - Continue ropinirole 1.5 mg daily at bedtime. Depression with bereavement, present on admission. Stable. - Continue citalopram 10 mg daily. PRN antiemetics: Zofran and Maalox. PRN bowel regimen: Senna and MiraLAX. PRN analgesics: Nitroglycerin, morphine and Tylenol. Disposition: Patient will remain observation for the next 48 hours on amiodarone , assuming all goes well she will be discharged home at that point. . VTE Prophylaxis: Sub-Q Heparin (Unfractionated) Resuscitation Status: CPR: Attempt Resuscitation Attending Statement The patient was seen and examined together with Dr. Baez on 12/04/2016 and I agree with the history, exam and plan as outlined in the note above. . Rupert Baez DO Dec 04, 2016 21:08 Jovanny Robles MD Dec 05, 2016 08:02
[2016-12-04] MEDS ORDERED: TRAZ-115 PO (21:34)
[2016-12-04] MEDS ORDERED: HYDROcodone-APAP 5-325 mg Tablet PO PRN (22:25)
[2016-12-05 02:50] VITALS: BP 142/82; PULSE 53; RESP 22; O2SAT 91
[2016-12-05 03:38] LABS: Mean Corpuscular Volume 97.2 fL (81-100)
[2016-12-05 04:01] LABS: Magnesium 2.3 mg/dL (1.6-2.6)
[2016-12-05 06:02] VITALS: PULSE 53
--- NOTE | 2016-12-05 06:18 | NUR ---
Cardiac: Telemetry sinus bradycardia during shift, one asymptomatic episode of 7 beats V-tach. No overt signs or symptoms of distress. VSS. Scheduled Amiodarone and Metoprolol administered per order. Pt. denies chest pain throughout shift.
[2016-12-05] MEDS ORDERED: Pantoprazole 40 mg ER24 Tablet PO SCH (06:30)
[2016-12-05 09:40] VITALS: PULSE 48
[2016-12-05 09:53] VITALS: BP 148/73; PULSE 51; RESP 18; O2SAT 92
[2016-12-05] MEDS: Heparin 5,000 Unit/mL Inj SUBQ SCH (10:01)
[2016-12-05] MEDS: Sodium Chloride LOK Flush 10 mL Syringe IVFLUSH SCH (10:01)
[2016-12-05 10:05] VITALS: PULSE 50
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
[2016-12-05] MEDS ORDERED: METO50TA3 PO (11:26)
[2016-12-05] MEDS ORDERED: AMIO400T4 PO (11:26)
[2016-12-05] MEDS ORDERED: AMIO200T PO (11:26)
--- NOTE | 2016-12-05 11:31 | PCM.DIMED ---
Josef Stoll DO 12/05/16 1131: Discharge Instructions Date of Service Dec 05, 2016 Dates of Hospitalization Dec 04, 2016 at 01:01 Discharge Diagnosis Discharge Diagnosis Acute ventricular tachycardia, present on admission. Active. Heart failure with reduced ejection fraction, present on admission. Presumed stable. CAD, present on admission. Presumed stable. Hypertension, present on admission. Stable. Hyperlipidemia, present on admission. Presumed stable. Chronic kidney disease stage IV, present on admission. Stable. Prediabetes, present on admission. Presumed stable. History of breast cancer. Hypothyroidism, present on admission. Presumed stable. Restless leg syndrome, present on admission. Stable. Depression with bereavement, present on admission. Stable. . Medication Instructions Additional med instructions We have started you on a new medication called amiodarone. Please take 2, 200 mg tablets twice daily for 1 week, starting December 13 take 1 400 mg tablet daily We have changed you beta bria to Metoprolol 12.5 mg twice per day, this is a less potent medication and dosing so that you don't get side effects now that you are on Amiodarone. Diet Discharge Diet: Heart Healthy Activity Discharge Activity: Limited until seen by PCP (Exercise as you are able, be up and about.) Call your provider Call your provider for: Fever or Chills, Shortness of breath, Bleeding, Chest pain, Vomitting, Excessive diarrhea, Weakness (unilateral) Patient Instructions Follow-up plan Please see your primary care provider Janina Silva within 1 week Please keep your previously scheduled appointment with Dr. Soto on December 14. Follow-up Provider: Janina Silva Follow-up with PCP in: 1 week Provider: Mitali Soto MD Follow-up in: 2 weeks (Previously scheduled appointment December 14) Jovanny Robles MD 12/05/16 1501: Discharge Instructions Attending's Statement The patient was seen and examined together with Dr. Stoll on 12/05/2016 and I agree with the history, exam and plan as outlined in the note above. . Josef Stoll DO Dec 05, 2016 11:31 Jovanny Robles MD Dec 05, 2016 15:01
[2016-12-05 12:18] VITALS: BP 126/77; PULSE 46; RESP 20; O2SAT 92
--- NOTE | 2016-12-05 12:52 | NUR ---
Social Work- Discharge Data: EMR reviewed. Pt to d/c today. D/C orders are active. Pt to d/c home via POV. No d/c needs. Assessment: Pt who is independent with ADLs and self-care Plan: Pt to d/c today. D/C orders are active. Pt to d/c home via POV. No d/c needs. Rafia Lyn MSW
--- NOTE | 2016-12-05 15:35 | NUR ---
Discharge, Follow-up Pharmacy Call [phone] - Spoke to Dr. Robles who said she needed to eat breakfast, walk around the hallway, and then she could discharge today. [phone] - Discussed her care with Dr. Robles, Dr. Stoll, and the rest of the multidisciplinary care team during morning rounds. Dr. Robles said she would be discharging today. 1109 - She had walked down to the nurse's station with the COMMERCIAL LOAN ANALYST then complained of having pain in her knee and wanted to go back to her room. Staff noted that all morning she had been laying in bed and wasn't eager to participate in self care. This nurse told her that if she wanted to discharge she would have to walk around the unit at least once to prove to staff she could take care of herself and home. Dr. Stoll was updated on this and was in agreement. 1357 - Discontinued her IV intact in preparation for discharge. It bled through the first gauze dressing. Pressure was applied to the area and it was redressed once it stopped bleeding. Discussed and gave her the discharge paperwork (3 prescriptions, care notes instructions). Her daughter and her were concerned about whether she needed to continue taking her Lisinopril and Carvedilol. Notified them that per the Doctor's written discharge instructions she was to continue taking the Lisinopril and discontinue the Carvedilol. They were still concerned and wanted to MD contacted. paged Dr. Stoll who called back and said the same thing. He said that the newly ordered Metoprolol was to replace the Carvedilol. This information was passed along to the patient and her daughter who accepted it. 1415 - She discharged at this time. Telemetry was discontinued intact after the [employer] was notified. Took all her belongings with her. The two sealed bags of home medications from the pharmacy were given back to her. She was taken via wheelchair to the lobby by Holli Callahan RN where her daughter was to drive her home. She thanked staff for their care. 1521 - Spoke to a Pharmacist from [facility] who wanted to clarify if she could be prescribed 400 mg tablets of Amiodarone twice a day until the instead of the two 200 mg tablets twice a day. Told her this would be fine.
--- NOTE | 2016-12-05 16:45 | PCM.DC.MED ---
Discharge Summary Date of Service Dec 05, 2016 Dates of Hospitalization Date of Hospital Admission Dec 04, 2016 at 01:01 Date of Discharge: Dec 05, 2016 Providers: Admitting Physician: Maya Lynn DO Primary Care Physician: Janina Silva Attending Physician: Jovanny Robles MD Diagnosis at Time of Discharge Diagnosis at Time of Discharge Acute ventricular tachycardia, present on admission. Active. Heart failure with reduced ejection fraction, present on admission. Presumed stable. CAD, present on admission. Presumed stable. Hypertension, present on admission. Stable. Hyperlipidemia, present on admission. Presumed stable. Chronic kidney disease stage IV, present on admission. Stable. Prediabetes, present on admission. Presumed stable. History of breast cancer. Hypothyroidism, present on admission. Presumed stable. Restless leg syndrome, present on admission. Stable. Depression with bereavement, present on admission. Stable. . Consultations Cardiology with Dr. Lincoln Procedures XRay, CTs & MRIs Portable chest x-ray wet read by ED physician: Left mastectomy without any acute cardio pulmonary process. . Cardiac Echo Impression Previous Echocardiogram Interpretation Summary: The left ventricle is normal in size. Left ventricular wall thickness is mildly increased. The ejection fraction is estimated to be 40-45%. There is apical lateral wall moderate hypokinesis. There is apical inferior wall akinesis. There is posterolateral wall severe hypokinesis. The IVC is of normal diameter and collapses greater than 50% with a sniff. This suggests a low right atrial pressure of 3 mm Hg. No other echocardiographic abnormalities seen. Since the prior exam from 04/23/2013 no significant changes noted. Reading Physician:05:04 PM . Echocardiogram Interpretation Summary Left ventricular systolic function is moderately reduced with the ejection fraction estimated to be 35-40% with akinesis of the majority of the inferior, posterior and lateral bennett, extending to and involving the majority of the apex but this is unchanged compared to the previous study. Left ventricular size is at the upper limits of normal. Assessment of diastolic parameters suggests a pseudonormalization pattern, consistent with elevated filling pressures, likely higher compared to the previous study. The right ventricle is normal size and right ventricular systolic function is moderately reduced but is likely unchanged compared to the previous study. The right ventricular systolic pressure is estimated at 36 mmHg assuming a right atrial pressure of 3 mm Hg, and is likely unchanged compared to the previous study. The left atrium is mildly dilated. There is mild mitral regurgitation that is unchanged compared to the previous study. There is no other significant valvular heart disease. The ascending aorta is mildly enlarged. Reading Physician:01:56 PM Brief History Taken from History and Physical composed by Dr. Fleming on 12/04/16 Gege Shelley is a 76-year-old female with a past medical history significant for myocardial infarction 2, CABG 3 vessels, hypertension and hyperlipidemia who presented to [facility] emergency department via EMS due to chest pain onset 2129. The patient describes the chest pain as substernal in location. The pain radiated to her right arm. The quality of the pain was "heavy." She rated the pain a +6 out of 10 in severity. She has had accompanying nausea 1 week. She took two aspirins and 3 sublingual nitroglycerin tablets without any relief. She took her daily aspirin at roughly 0900 this morning. EMS reports her HR being 150 when they arrived, and eventually decreasing to 110, and a SBP with a high of 103 mmHg and a low of 75mmHg. The patient reports her SBP being 213 mmHg four days ago. Her chest pain resolved in the ED after she was chemically cardioverted with IV metoprolol tartrate. She was also hospitalized two years ago for a STEMI. She denies vision changes, cough, sore throat, shortness of breath, palpitations, diaphoresis, vomiting, dysuria, or diarrhea. She endorses chronic constipation. Vital signs in the ER: Temperature 37.2. Pulse 145. Respiratory rate 29. Blood pressure 141/104. Pulse ox I4 percent on room air.She was given nitroglycerin paste 1 inch topically and metoprolol tartrate IV 5 mg 3. PCP is Dr. Janina Goldberg PA-C. Test Director is Dr. Soto. . Hospital Course Gege Shelley is a 76-year-old female with a past medical history significant for myocardial infarction 2, CABG 3 vessels, hypertension and hyperlipidemia who presented to [facility] emergency department via EMS due to chest pain who was found to be in ventricular tachycardia status post chemical cardioversion with IV metoprolol tartrate. The patient was successfully transitioned to Oral amiodarone with a compensatory change and reduction of beta blockade to Metoprolol Tartrate 12.5 mg BID, and was cardiovascularly stable upon discharge. Acute ventricular tachycardia, present on admission. Resolved - Patient presented with substernal chest pain and wide complex tachycardia later determined to be ventricular tachycardia per cardiology, Dr. Hall. - Cardiac risk factors include: previous OR 2, CABG 3 vessels, hypertension, hyperlipidemia, prediabetes, age, obesity, former smoker. - Status post conversion with metoprolol tartrate IV. - Discontinued carvedilol and started metoprolol tartrate 50 mg every 6 hours at the recommendation of cardiology, Dr. Hall. - Per recommendations of cardiology amiodarone 400 mg BID - Continued to monitor closely on telemetry. - Echocardiogram shows ejection fraction 35-40% (decreased from previous) other results as above - Initial troponin negative. serial troponins x 3 negative. - TSH within normal limits - Electorlytes within normal limits - UA negative - Consulted cardiology and we appreciated their expertise Chronic problems: Heart failure with reduced ejection fraction, present on admission. Presumed stable. - Discontinued carvedilol and started metoprolol tartrate 12.5 mg BID - Continued lisinopril 10 mg daily. CAD, present on admission. Presumed stable. - Continued aspirin 81 mg daily and clopidogrel 75 mg daily. Hypertension, present on admission. Stable. - Continued lisinopril 10 mg daily. Hyperlipidemia, present on admission. Presumed stable. - Continued rosuvastatin 40 mg daily at bedtime. Chronic kidney disease stage IV, present on admission. Stable. - Baseline creatinine 1.3-1.4. Initial creatinine 1.35. - Avoided nephrotoxic agents. Prediabetes, present on admission. Presumed stable. - Last hemoglobin A1c 6.3% in 11/2015. Repeat hemoglobin A1c pending at time of discharge - Placed patient on a carbohydrate consistent/heart healthy diet. - Continue glipizide 2.5 mg daily. History of breast cancer. - Continued Letrozole 2.5 mg daily. Hypothyroidism, present on admission. Presumed stable. - Continued levothyroxine 88 g daily. - Ordered TSH, pending. Restless leg syndrome, present on admission. Stable. - Continued ropinirole 1.5 mg daily at bedtime. Depression with bereavement, present on admission. Stable. - Continued citalopram 10 mg daily. . Exam Vital Signs (Last) Date Time Temp Pulse Resp B/P Pulse Ox O2 Delivery O2 Flow Rate FiO2 8/20/17 12:18 36.6 46 20 126/77 92 Room Air 12/05/16 02:50 2.00 Exam Gen: A/O x3 age appropriate elderly woman in NAD Neck: Supple, no JVD HEENT: PERRL, EOMI, no scleral icterus CV: RRR, no murmurs rubs or gallops Resp: Lungs CTA BL, no wheezing rales or rhonchi Abd: Soft, non tender, no rebound guarding or masses Extr: No clubbing cyanosis or edema Neuro: CN 2-12 grossly intact, no focal neurologic deficit Psych: Pleasant and appropriate mood and affect. Test 12/03/16 23:16 12/04/16 02:00 12/04/16 03:25 12/04/16 11:00 Total Bilirubin 0.4mg/dL (0.0-1.2) Aspartate Amino Transf (AST/SGOT) 31U/L (0-50) Alanine Aminotransferase (ALT/SGPT) 17U/L (0-32) Alkaline Phosphatase 134U/L (25-165) Total Protein 6.9g/dL (6.4-8.4) Albumin 3.6g/dL (3.4-5.0) Thyroid Stimulating Hormone (TSH) 0.979uIU/mL (0.450-4.500) Urine Color Straw (YELLOW) Urine Appearance Clear (CLEAR,HAZY) Urine pH 5.5 (5.0-8.0) Urine Specific [place] 1.010 (1.003-1.035) Urine Protein Negativemg/dL (NEG,TRACE) Urine Glucose (UA) Negativemg/dL (NEGATIVE) Urine Ketones Negativemg/dL (NEGATIVE) Urine Occult Blood Trace (NEGATIVE) Urine Nitrite Negative (NEGATIVE) Urine Bilirubin Negative (NEGATIVE) Urine Urobilinogen Normalmg/dL (NORMAL) Urine Leukocyte Esterase Negative (NEGATIVE) Urine RBC 0-2/hpf (0-2) Urine WBC 0-5/hpf (0-5) Urine Epithelial Cells Moderate/hpf (NONE-MOD) Urine Crystals None seen (NONE SEEN) Urine Bacteria None/hpf (NONE-FEW) Urine Hyaline Casts None/lpf (NONE) Urine Granular Casts None seen (NONE SEEN) Urine Waxy Casts None seen (NONE SEEN) Urine Red Blood Cell Casts None seen (NONE SEEN) Urine White Blood Cell Casts None seen (NONE SEEN) Urine Mucus None seen (None Seen) Urine Trichomonas None seen (NONE SEEN) Urine Yeast None (NONE SEEN) Urinalysis Comment None Urine Culture Reflexed Not indicated Neutrophils (%) (Auto) 62.1% (40-74) Lymphocytes (%) (Auto) 24.6% (14-46) Monocytes (%) (Auto) 10.8% (4-12) Eosinophils (%) (Auto) 1.8% (0-5) Basophils (%) (Auto) 0.3% (0-3) Total Creatine Kinase 87U/L (21-215) Creatine Kinase MB 4.8ng/mL (0.0-5.3) Creatine Kinase MB % % (0.0-5.0) Troponin T 0.010ug/L (0.0-0.011) Test 12/05/16 03:00 White Blood Count 8.5th/mm3 (3.8-10.1) Red Blood Count 4.65mil/mm3 (3.90-5.20) Hemoglobin 14.4g/dL (12.0-15.6) Hematocrit 45.2% (35.0-46.0) Mean Corpuscular Volume 97.2fL (81-100) Mean Corpuscular Hemoglobin 31.0pg (27.0-35.0) Mean Corpuscular Hemoglobin Concent 31.9% (32.0-37.0) Red Cell Distribution Width 15.4% (12.3-15.4) Platelet Count 138bil/L (150-400) Sodium Level 146mEq/L (134-144) Potassium Level 4.8mEq/L (3.5-5.2) Chloride Level 109mEq/L (97-108) Carbon Dioxide Level 24mmol/L (18-29) Blood Urea Nitrogen 36mg/dL (8-27) Creatinine 1.45mg/dL (0.57-1.00) Estimat Glomerular Filtration Rate 50mL/min (>59) Glucose Level 104mg/dL (60-99) Calcium Level 9.1mg/dL (8.5-10.1) Magnesium Level 2.3mg/dL (1.6-2.6) Triglycerides Level 90mg/dL (0-149) Cholesterol Level 129mg/dL (100-199) LDL Cholesterol, Calculated 64.000mg/dL (0-99) VLDL Cholesterol 18.000mg/dL HDL Cholesterol 47mg/dL (>39) Cholesterol/HDL Ratio 2.74 (0.0-4.4) Discharge Medications Discharge Medications Amiodarone (Amiodarone) 200 Mg Tablet 400 MG PO BID Prescribed by: WENDY STOLL DO Amiodarone (Amiodarone) 400 Mg Tablet 400 MG PO DAILY Prescribed by: WENDY STOLL DO Aspirin (Aspirin) 81 Mg Tablet 81 MG PO DAILY (Reported) Citalopram (Citalopram) 10 Mg Tablet 10 MG PO DAILY (Reported) Clopidogrel Bisulfate (Plavix) 75 Mg Tablet 75 MG PO DAILY (Reported) Glipizide (Glipizide) 5 Mg Tablet 2.5 MG PO MORNING (Reported) HOLD Letrozole (Letrozole) 2.5 Mg Tablet 2.5 MG PO DAILY (Reported) Levothyroxine (Levoxyl) 88 Mcg Tablet 88 MCG PO DAILY (Reported) Lisinopril (Lisinopril) 10 Mg Tablet 10 MG PO DAILY (Reported) Metoprolol Tartrate (Metoprolol Tartrate) 50 Mg Tablet 12.5 MG PO BID Prescribed by: WENDY STOLL DO Nitrofurantoin Macrocrystal (Nitrofurantoin Macrocrystal) 100 Mg Capsule 1 CAPSULE PO BID (Reported) Pantoprazole DR (Pantoprazole DR) 40 Mg Tablet.dr 40 MG PO DAILY (Reported) Polyethylene Glycol 3350 (Polyethylene Glycol 3350) 17 Gm Powd.pack 17 GM PO BID (Reported) Ropinirole (Ropinirole) 1 Mg Tablet 1.5 MG PO HS (Reported) Rosuvastatin Calcium (Rosuvastatin Calcium) 40 Mg Tablet 40 MG PO HS (Reported) As needed Hydrocodone-Acetaminophen 5-325 mg (Hydrocodone-Acetaminophen 5-325 mg) 1 Each Tablet 1 TABLET PO Q6H PRN PRN For Pain (Reported) Melatonin (Melatonin) 10 Mg Tablet 10 MG PO PRN Insomnia (Reported) Nitroglycerin SL (Nitrostat) 0.4 Mg Tab.subl 0.4 MG SL DIRECTED PRN PRN chest pain (Reported) Prochlorperazine Maleate (Prochlorperazine) 10 Mg Tablet 1 TAB PO q4-6 hr PRN PRN For Nausea/Vomiting (Reported) Promethazine (Promethazine) 25 Mg Tablet 25 MG PO q4-6h PRN PRN For Nausea/ Vomiting (Reported) Trazodone (Trazodone) 50 Mg Tablet 25-50 MG PO HS PRN PRN For Insomnia (Reported ) Additional med instructions We have started you on a new medication called amiodarone. Please take 2, 200 mg tablets twice daily for 1 week, starting December 13 take 1 400 mg tablet daily We have changed you beta bria to Metoprolol 12.5 mg twice per day, this is a less potent medication and dosing so that you don't get side effects now that you are on Amiodarone. Followup Plan Disposition: Home Follow-up plan Please see your primary care provider Janina Silva within 1 week Please keep your previously scheduled appointment with Dr. Soto on December 14. Discharge Diet: Heart Healthy Discharge Activity: Limited until seen by PCP (Exercise as you are able, be up and about.) Follow-up Provider: Janina Silva Follow-up with PCP in: 1 week Provider: Mitali Soto MD Follow-up in: 2 weeks (Previously scheduled appointment December 14) Time spent Greater than 30 minutes was spent in preparation of discharge with greater than 50% of that time dedicated to patient counseling and coordination of care. Attending Statement The patient was seen and examined together with Dr. Stoll on 12/05/2016 and I agree with the history, exam and plan as outlined in the note above. . copies to: Janina Silva; Mitali Soto MD, David E DO Dec 05, 2016 16:45 Jovanny Robles MD Dec 06, 2016 09:10
== END 2016-12-05 14:30 | disposition home or self-care (01) | DRG 309 ==
LOC: EDBD 22:50 → EDSEX 22:50 → SED 22:50 → EDUNIT# 22:50 → OBSVTOIN 12-04 01:01 → PCC 12-04 01:01
PROVIDERS: ADMIT Internal Medicine; ATTEND Internal Medicine
DX: I47.2 Ventricular tachycardia (principal); I50.22 Chronic systolic (congestive) heart failure; N18.4 Chronic kidney disease, stage 4 (severe); I25.10 Atherosclerotic heart disease of native coronary artery without angina pectoris; I12.9 Hypertensive chronic kidney disease with stage 1 through stage 4 chronic kidney disease, or unspecified chronic kidney disease; E78.5 Hyperlipidemia, unspecified; E03.9 Hypothyroidism, unspecified; G25.81 Restless legs syndrome; F32.89 Other specified depressive episodes; Z63.4 Disappearance and death of family member; R73.03 Prediabetes; I25.2 Old myocardial infarction; Z95.1 Presence of aortocoronary bypass graft; Z87.891 Personal history of nicotine dependence; Z85.3 Personal history of malignant neoplasm of breast